=== PATIENT | female | born 1945 | race Caucasian/White ===

== ENCOUNTER 2017-11-08 11:56 | Inpatient (IN) | payer MEDICARE, OTHER ==
[2017-11-08] MEDS ORDERED: Morphine 4 MG/ML VIAL ONE ×2 (12:49→14:16)
--- NOTE | 2017-11-08 13:09 | RAD ---
RIGHT HUMERUS TWO VIEWS: History: 72-year-old female with history of right shoulder pain and deformity following a trip and fall. FINDINGS: There is a markedly comminuted fracture involving the proximal humerus with an asymmetric appearing g lenohumeral joint with possible subluxation or even dislocation. A follow up right shoulder CT scan w ithout IV contrast is recommended for further assessment of this. IMPRESSION: Comminuted displaced fracture of the proximal right humerus with foreshortening and probable right gl enohumeral joint subluxation/dislocation. Follow up CT scan is recommended. POS: OFF
--- NOTE | 2017-11-08 13:11 | RAD ---
THREE VIEWS RIGHT SHOULDER: Date: 11-08-17 History: Fall, trauma, pain. FINDINGS: There is a comminuted and impacted fracture of the humeral head on the right. The impacted fractured humeral head projects more inferior than normal with respect to the glenoid which could signify a pse udo-dislocation on the basis of a large shoulder hemarthrosis. A degree of inferior subluxation canno t be excluded. One of the fracture fragments involving the proximal right humerus includes the greate r tuberosity and is displaced laterally by 6 mm. IMPRESSION: Comminuted displaced and impacted fracture of the proximal right humerus/humeral head with pseudo-dis location versus inferior subluxation. Orthopedic consultation advised. POS: [facility]
[2017-11-08 14:51] LABS: #Lymphocytes 0.9 thou/uL (1.20-3.40); #Monocytes 0.2 thou/uL (0.11-0.59); #Neutrophils 8.2 thou/uL (1.40-6.50); %Basophils 0.2 % (0.0-1.0); %Eosinophils 0.3 % (0.0-10.0); %Monocytes 2.1 % (0.0-10.0); %Neutrophils 87.4 % (42.0-75.0); Hemoglobin 15.7 g/dL (12.0-16.0); Mean Corpuscular HGB CONC 34.1 g/dL (32.0-36.0); Mean Corpuscular Hemoglobin 31.8 pg (27.0-31.0); Mean Corpuscular Volume 93.1 fl (81.0-99.0); Mean Platelet Volume 7.5 fL (7.4-10.4); Platelet Count 197 thou/uL (130-400); RBC Distribution Width 11.5 % (11.5-14.5); Red Blood Cell (RBC) Count 4.95 mill/uL (4.20-5.40); White Blood Cell (WBC) Count 9.4 thou/uL (4.8-10.8)
[2017-11-08 15:10] LABS: ALT (SGPT) 21 U/L (8-55); AST (SGOT) 24 U/L (5-34); Albumin 4.2 g/dL (3.4-4.8); Alkaline Phosphatase 69 U/L (40-150); Anion Gap 11 mmol/L (10-20); BUN (Urea Nitrogen) 20 mg/dL (9.8-20.1); Bilirubin, Total 0.8 mg/dL (0.2-1.2); Calc. Creatinine Clearance 0 mL/min (70-130); Carbon Dioxide 27 mmol/L (23-31); Chloride 105 mmol/L (98-107); Estimated GFR-MDRD 55; Globulin 3.1 g/dL (2.4-3.5); Glucose 127 mg/dL (80-115); Potassium 3.1 mmol/L (3.5-5.1); Protein, Total 7.3 g/dL (6.0-8.3); Sodium 140 mmol/L (136-145)
[2017-11-08] MEDS ORDERED: traMADol HCl 50 MG TAB PO PRN ×2 (16:59)
[2017-11-08] MEDS ORDERED: Dextrose 50% Abboject 50 ML SYRINGE SLOW IVP PRN (16:59)
[2017-11-08] MEDS ORDERED: Cyclobenzaprine 10 MG TAB PO PRN (16:59)
[2017-11-08] MEDS ORDERED: Ondansetron ODT 4 MG TAB PO PRN (16:59)
[2017-11-08] MEDS ORDERED: Ondansetron HCl/PF 4 MG/2 ML Vial IVP PRN (16:59)
[2017-11-08] MEDS ORDERED: Dextrose 5% in Water 1,000 ML IV PRN (16:59)
[2017-11-08] MEDS: Ketorolac Tromethamine 30 MG/ML VIAL IVP SCH ×2 (17:28→23:23)
[2017-11-08] MEDS: Acetaminophen 1,000 MG in Premix Bag 1 BAG IVPB SCH ×2 (17:28→23:23)
[2017-11-08 17:56] VITALS: BMI 41.1
--- NOTE | 2017-11-08 20:13 | CON ---
DATE OF CONSULTATION: 11/08/2017 CHIEF COMPLAINT: Right arm pain. HISTORY OF PRESENT ILLNESS: Ms. Castellano is a 72-year-old female who fell today. She landed on her righ t arm. She was out working in her garden. She is right hand dominant. She had immediate pain in th e shoulder and was unable to elevate the arm. She was taken to the Emergency Department. X-rays of the shoulder have been obtained. She has been found to have a fracture, dislocation of the right pro ximal humerus. Orthopedics was consulted for this injury. The General Surgery Trauma Service has be en consulted to admit the patient and manage her in the perioperative period. PAST MEDICAL HISTORY: The patient reports being healthy in general. She has a past history of atria l fibrillation only. PAST SURGICAL HISTORY: Cholecystectomy, hysterectomy, tonsillectomy. PSYCHIATRIC HISTORY: Negative. SOCIAL HISTORY: The patient denies tobacco, alcohol, or drug use. REVIEW OF SYSTEMS: Positive for shoulder pain, otherwise negative 10-point review of systems. FAMILY MEDICAL HISTORY: Negative. IMAGES: X-rays of the right shoulder demonstrate a proximal humerus fracture dislocation. There is wide displacement of the humeral head with a 180 degrees of rotation. This is a 4 part fracture. PHYSICAL EXAMINATION: VITAL SIGNS: Stable. She is afebrile, normotensive. HEENT: Normocephalic, atraumatic. RESPIRATORY: Breathing comfortably. ABDOMEN: Soft, nontender, nondistended. CARDIOVASCULAR: Pulses palpable and regular. MUSCULOSKELETAL: The patient's right shoulder has swelling and pain with motion. She is neurovascul low intact in the upper extremity with a palpable pulse. She is able to flex and extend the digits. Two second capillary refill. She has intact sensation in the axillary nerve distribution. IMPRESSION: Fracture dislocation of the right proximal humerus in an elderly female. PLAN: At this point, the patient will need surgical intervention. We will be unable to perform a cl osed reduction on her given that proximal humerus fracture significantly. I think her best option wi ll be a reverse shoulder arthroplasty to restore function of the shoulder. I do not think her fractu re will be amenable to repair given that she has comminution and displacement. She is aware of risks and benefits and wants to proceed. Risks do include shoulder instability, infection, hardware failu re, nerve or vascular injury and others. She will be n.p.o. at midnight. We will give her appropria te antibiotic prophylaxis. We will hold her blood thinner for now.
[2017-11-09] MEDS: Sodium Chloride 0.9% 1,000 ML IV SCH ×3 (02:45→19:04)
[2017-11-09] MEDS: Ketorolac Tromethamine 30 MG/ML VIAL IVP SCH ×4 (06:03→23:37)
[2017-11-09] MEDS: Acetaminophen 1,000 MG in Premix Bag 1 BAG IVPB SCH ×3 (06:04→19:06)
[2017-11-09] MEDS ORDERED: Midazolam HCl 2 mg/2 ml Vial ONE (06:28)
[2017-11-09] MEDS ORDERED: Fentanyl 100 MCG/2 ML VIAL ONE (06:28)
[2017-11-09] MEDS ORDERED: Lidocaine 1% PF 5 ML VIAL ONE (06:29)
[2017-11-09] MEDS ORDERED: Ropivacaine 0.2% HCl/PF 20 ML ONE (06:29)
[2017-11-09] MEDS ORDERED: Ropivacaine 0.5% HCl/PF (150 MG/30 ML VIAL) ONE (06:29)
[2017-11-09] MEDS ORDERED: CEFAZOLIN/Water 2 GM/20 ML SYRINGE ONE (06:35)
[2017-11-09] MEDS ORDERED: CEFAZOLIN/Water 2 GM/20 ML SYRINGE SLOW IVP SCH ×2 (07:00→09:45)
[2017-11-09] MEDS ORDERED: Promethazine HCl 25 MG/ML VIAL IM PRN ×2 (07:42→09:53)
[2017-11-09] MEDS ORDERED: Zolpidem Tartrate 5 MG TAB PO PRN (07:42)
[2017-11-09] MEDS ORDERED: traMADol HCl 50 MG TAB PO PRN ×2 (07:42)
[2017-11-09] MEDS ORDERED: Ropivacaine HCl/PF 1,100 MG in Sodium Chloride 0.9% 440 ML NERVE BLCK SCH (07:42)
[2017-11-09] MEDS ORDERED: Ondansetron HCl/PF 4 MG/2 ML Vial IVP PRN ×2 (07:42→09:53)
[2017-11-09] MEDS ORDERED: Fentanyl 100 MCG/2 ML VIAL IV PRN (07:43)
[2017-11-09] MEDS ORDERED: HYDROcodone/Acetaminophen 7.5/325 mg Tablet PO PRN ×2 (07:46)
[2017-11-09] MEDS ORDERED: Promethazine HCl 25 MG/ML VIAL SLOW IVP PRN (09:53)
--- NOTE | 2017-11-09 09:54 | OP ---
DATE OF OPERATION: 11/09/2017 OPERATION: Right reverse shoulder arthroplasty. PREOPERATIVE DIAGNOSIS: Right comminuted proximal humerus fracture/dislocation. POSTOPERATIVE DIAGNOSIS: Right comminuted proximal humerus fracture/dislocation. COMPLICATIONS: None. ESTIMATED BLOOD LOSS: 400 mL. SURGEON: Dr. Nick Washington DRAPERY WORKER: DARIN Murphy IMPLANTS: A DePuy reverse shoulder arthroplasty size 42 glenoid, size 5 stem cemented with a +9 poly ethylene. INDICATIONS: Ms. Castellano is a 72-year-old female who fell. She fractured her proximal humerus and disl ocated. She had a widely displaced fracture with comminution. She was indicated for reverse shoulde r arthroplasty to restore function and relieve pain and prevent complications such as nonunion or jazmin scular necrosis. DESCRIPTION OF PROCEDURE: Ms. Castellano was identified in the preoperative holding area. Her correct ext remity was marked. She was carried to the operating room. She was positioned supine. General anest hesia was induced. A multidisciplinary timeout was performed. The right upper extremity was prepped and draped in sterile fashion. We began the procedure with a deltopectoral approach to the shoulder. We dissected down through the subcutaneous tissues to the deltopectoral interval. At this point, we developed the interval bluntly . We protected the cephalic vein. We then exposed the underlying proximal humerus fracture. There were multiple fragments. The humeral head and articular surface was split and flipped 180 degrees. The humeral head component was removed. We then freed up the lesser tuberosity component and greater tuberosity components. At this point, we exposed the underlying glenoid surface. The glenoid was c leared of cartilage and labral tissue. We then prepared the glenoid using a central guidewire. We r eamed the glenoid surface. We then drilled our central peg hole. Next, we impacted our baseplate. Four screws were placed, fixing the glenoid baseplate to the bone. At this point, we impacted our 42 mm glenosphere. This was tightened appropriately. We then moved to the humerus. The humeral canal was reamed. We then broached up to a size 5. We we re missing significant metaphyseal bones. We decided to cement the stem in place. At this point, we mixed cement on the back table and cemented our stem in appropriate version. After thorough irrigat ion, we trialed. A +9 polyethylene gave the best range of motion and stability. We accepted this an d impacted our final poly. We reduced the shoulder. At this point, we thoroughly irrigated with telescope repairer ious lavage. We then closed our lesser tuberosity to the greater tuberosity using #5 Ethibond suture . We then closed our deltopectoral interval and remainder of the wound appropriately. A sterile lauren ssing was applied and a sling. The patient was taken to the recovery room in good condition without complication.
[2017-11-09] MEDS ORDERED: Ropivacaine 0.2% 550 ML 550 ML NERVE BLCK SCH (10:11)
--- NOTE | 2017-11-09 10:52 | RAD ---
RIGHT SHOULDER ONE VIEW: History: 72-year-old female with history of right reverse should arthroplasty. FINDINGS: Single AP view of the right shoulder demonstrates recent right reverse shoulder arthroplasty. No disl ocation or evidence for paraprosthetic fracture seen on this single view. IMPRESSION: Post right reverse shoulder arthroplasty. POS: [facility]
[2017-11-09 13:16] LABS: #Lymphocytes 0.7 thou/uL (1.20-3.40); #Monocytes 0.2 thou/uL (0.11-0.59); #Neutrophils 8.7 thou/uL (1.40-6.50); %Basophils 0.3 % (0.0-1.0); %Eosinophils 0.3 % (0.0-10.0); %Lymphocytes 7.1 % (21.0-51.0); %Monocytes 2.1 % (0.0-10.0); %Neutrophils 90.1 % (42.0-75.0); Mean Corpuscular HGB CONC 34.3 g/dL (32.0-36.0); Mean Corpuscular Hemoglobin 31.9 pg (27.0-31.0); Mean Corpuscular Volume 93.1 fl (81.0-99.0); Mean Platelet Volume 7.4 fL (7.4-10.4); Platelet Count 178 thou/uL (130-400); RBC Distribution Width 11.7 % (11.5-14.5); Red Blood Cell (RBC) Count 4.06 mill/uL (4.20-5.40); White Blood Cell (WBC) Count 9.7 thou/uL (4.8-10.8)
[2017-11-09 13:39] LABS: Anion Gap 11 mmol/L (10-20); BUN (Urea Nitrogen) 24 mg/dL (9.8-20.1); Calc. Creatinine Clearance 85 mL/min (70-130); Calcium 8.6 mg/dL (7.8-10.44); Carbon Dioxide 24 mmol/L (23-31); Chloride 105 mmol/L (98-107); Estimated GFR-MDRD 50; Glucose 133 mg/dL (80-115); Potassium 3.7 mmol/L (3.5-5.1); Sodium 136 mmol/L (136-145)
--- NOTE | 2017-11-09 18:13 | PRG ---
DATE OF SERVICE: 11/09/2017 SUBJECTIVE: The patient is hospital day #2 from a ground level fall. She is currently on the surgic al floor. She has just returned from the postanesthesia care unit where she underwent open reduction internal fixation of her right proximal humerus fracture. She tolerated this procedure well. She i s currently stating that her pain is controlled, primarily with a shoulder block, patient has On-Q pu mp also. She has not attempted to try a diet yet and has not worked with physical and occupational t herapy. OBJECTIVE: VITAL SIGNS: Temperature is 97.4, heart rate 77, blood pressure 165/95, respirations 16, oxygen satu ration 92% on 2 liters via nasal cannula. GENERAL: The patient is resting comfortably in bed. She is awake, alert, and oriented x3. Raquel coma scale is 15. HEENT: Unremarkable. LUNGS: Clear to auscultation with good inspiratory and expiratory effort. HEART: Regular rate and rhythm. ABDOMEN: Soft, flat, nontender with active bowel sounds. EXTREMITIES: Neurovascularly intact. The right upper extremity still has some numbness and tingling sensation. Otherwise, the right shoulder dressing is clean, dry, and intact. LABORATORY FINDINGS: White blood cell count 9.7, hemoglobin 13.0, hematocrit 37.8, platelets 178. S odium 136, potassium 3.7, chloride 105, CO2 of 24, BUN 24, creatinine 1.09, glucose 88. There are no radiographs to review this morning. ASSESSMENT AND PLAN: 1. Status post ground level fall. 2. Status post open reduction internal fixation of right proximal humerus fracture. Plan will be to continue pain control and start occupational therapy and chemical VTE prophylaxis anahi bates.
[2017-11-09] MEDS: Acetaminophen 500 MG TAB PO SCH (20:21)
[2017-11-10] MEDS: Acetaminophen 500 MG TAB PO SCH ×4 (01:27→16:23)
[2017-11-10] MEDS: Sodium Chloride 0.9% 1,000 ML IV SCH ×2 (03:41→09:34)
[2017-11-10] MEDS: Ketorolac Tromethamine 30 MG/ML VIAL IVP SCH (06:00)
[2017-11-10] MEDS ORDERED: Carvedilol 6.25 MG TAB PO SCH (09:00)
[2017-11-10] MEDS ORDERED: Triamterene/Hydrochlorothiazide 37.5 mg/25 mg Tablet PO SCH (09:00)
[2017-11-10] MEDS ORDERED: Apixaban 5 MG TAB PO SCH (09:00)
[2017-11-10 15:26] VITALS: BP 130/83; TEMP 98
[2017-11-10] MEDS ORDERED: Ibuprofen 600 MG TAB PO SCH (22:00)
== END 2017-11-10 16:56 | disposition home or self-care (01) | DRG 483 ==
LOC: ERS 11:56 → SURG B 16:54
PROVIDERS: ADMIT Surgery; ATTEND Surgery
PROC: 0RRJ00Z Replacement of Right Shoulder Joint with Reverse Ball and Socket Synthetic Substitute, Open Approach (ICD-10-PCS; principal; 2017-11-09)
DX: S42.201A Unspecified fracture of upper end of right humerus, initial encounter for closed fracture (principal); W19.XXXA Unspecified fall, initial encounter; Z90.49 Acquired absence of other specified parts of digestive tract; Z90.710 Acquired absence of both cervix and uterus; Y93.H2 Activity, gardening and landscaping
CPT/HCPCS: 36415; 80048; 80053; 85025; 86850; 86900; 86901; 93005; 96374; 96376; A4306; C1713; C1781; G8987-GO-CJ; G8988-GO-CI; J0131; J1885; J2001; J2250; J2270; J2795; J3010; J7050

== ENCOUNTER 2018-02-16 21:45 | Emergency (ER) | payer MEDICARE ==
--- NOTE | 2018-02-16 23:16 | RAD ---
CHEST ONE VIEW: 02/16/18 HISTORY: Fever. FINDINGS: No comparison. Cardiac silhouette and pulmonary vasculature are unremarkable. Mediastinum is midline. No lobar conso lidation or evidence of pneumothorax. Right shoulder prosthesis. IMPRESSION: No active cardiopulmonary abnormalities are demonstrated. POS: [facility]
[2018-02-16 23:43] LABS: Bilirubin Negative (Negative); Blood, Urine Negative (Negative); Clarity CLEAR (Clear); Glucose, Urine (Dipstick) Negative (Negative); Leukocyte Moderate (Negative); Nitrite Positive (Negative); Protein, Urine (Dipstick) Negative (Neg-Trace); Specific Gravity, Urine 1.008 (1.002-1.036); Urobilinogen 0.2 mg/dL (0.2-1.0)
[2018-02-16 23:45] LABS: Bacteria/HPF 2+ HPF (None Seen); Hyaline Casts/LPF 0-3 HYALINE CAST LPF (0-3 Hyaline); Pathc Cast-AUWi Flag 0.29 (0-2.49); RBC/HPF 0-3 HPF (0-3)
[2018-02-16 23:57] LABS: Hemoglobin 14.6 g/dL (12.0-16.0); Mean Corpuscular HGB CONC 34.7 g/dL (32.0-36.0); Mean Corpuscular Hemoglobin 31.2 pg (27.0-31.0); Mean Corpuscular Volume 89.8 fL (78.0-98.0); Mean Platelet Volume 7.3 fL (7.4-10.4); Platelet Count 158 thou/uL (130-400); RBC Distribution Width 12.1 % (11.5-14.5); Red Blood Cell (RBC) Count 4.68 mill/uL (4.20-5.40)
[2018-02-17 00:14] LABS: Band 12 % (5-11); Lymphocytes 9 % (21-51); MDiff Complete? YES; Monocytes 5 % (0-10); Neutrophil 74 % (42-75)
[2018-02-17 00:15] LABS: ALT (SGPT) 19 U/L (8-55); Albumin 3.9 g/dL (3.4-4.8); Alkaline Phosphatase 81 U/L (40-150); Anion Gap 13 mmol/L (10-20); BUN (Urea Nitrogen) 15 mg/dL (9.8-20.1); Bilirubin, Total 0.7 mg/dL (0.2-1.2); Calc. Creatinine Clearance 0 mL/min (70-130); Calcium 9.5 mg/dL (7.8-10.44); Carbon Dioxide 23 mmol/L (23-31); Chloride 105 mmol/L (98-107); Estimated GFR-MDRD 53; Globulin 2.9 g/dL (2.4-3.5); Glucose 136 mg/dL (83-110); Potassium 3.1 mmol/L (3.5-5.1); Protein, Total 6.8 g/dL (6.0-8.3); Sodium 138 mmol/L (136-145)
[2018-02-17] MEDS ORDERED: Lidocaine 1% PF 5 ML VIAL ONE (00:19)
[2018-02-17] MEDS ORDERED: cefTRIAXone\\ROCEPHIN 1 GM VIAL ONE (00:19)
[2018-02-17 00:20] LABS: AST (SGOT) 22 U/L (5-34)
[2018-02-17] MEDS ORDERED: Lidocaine 1% (PF) 30 ML VIAL ONE (00:20)
== END 2018-02-17 00:55 | disposition home or self-care (01) ==
LOC: ERS 21:45 → EDSEX 21:45 → MERGE 21:45 → ERS 02-17 00:55
DX: N39.0 Urinary tract infection, site not specified (principal); E78.5 Hyperlipidemia, unspecified; I48.91 Unspecified atrial fibrillation; Z79.82 Long term (current) use of aspirin; Z79.899 Other long term (current) drug therapy
CPT/HCPCS: 36415; 71045; 80053; 81003; 81015; 85025; 87040; 93005; 96372; J0696; J2001

== ENCOUNTER 2018-02-28 10:51 | Outpatient (CLI) | payer MEDICARE | END 2018-02-28 10:52 | disposition home or self-care (01) | LOC: BICMAMMO 10:51 | PROVIDERS: ATTEND Family Medicine | DX: Z12.31 Encounter for screening mammogram for malignant neoplasm of breast (principal); R92.1 Mammographic calcification found on diagnostic imaging of breast; Z80.3 Family history of malignant neoplasm of breast | CPT/HCPCS: 77063; 77067 ==